=== PATIENT | female | born 1960 | race Caucasian/White ===

== ENCOUNTER 2017-07-17 07:47 | Inpatient (IN) | payer OTHER ==
[~2017-07-17] VITALS: Ht 152.4 cm; Wt 83.1 kg
[2017-07-17] MEDS ORDERED: LIDOCAINE 2%, 20ML ONE (11:06)
[2017-07-17 11:11] LABS: ALANINE AMINOTRANSFERASE 13 U/L (12-78); ALBUMIN 3.8 g/dL (3.4-5.0); ANION GAP 12 mmol/L (5-15); CALCIUM 9.3 mg/dL (8.5-10.1); CHLORIDE 101 mmol/L (98-107); CREATININE 6.82 mg/dL (0.55-1.02)
[2017-07-17 11:14] LABS: ALKALINE PHOSPHATASE 99 U/L (45-117); BASOPHILS # (AUTO) 0.04 x10^3/uL (0-0.1); BASOPHILS % (AUTO) 1 % (0-1); BILIRUBIN,TOTAL 0.6 mg/dL (0.2-1.0); EOSINOPHILS # (AUTO) 0.08 x10^3/uL (0-0.4); EOSINOPHILS % (AUTO) 1 % (1-7); LYMPHOCYTES # (AUTO) 1.54 x10^3/uL (1-3.4); LYMPHOCYTES % (AUTO) 24 % (22-44); MD NO; MEAN CORPUSCULAR HEMOGLOBIN 30.4 pg (27.0-34.8); MEAN CORPUSCULAR HGB CONC 33.9 g/dL (32.4-35.8); MEAN CORPUSCULAR VOLUME 89.5 fL (80-100); MEAN PLATELET VOLUME 8.6 fL (7.4-10.4); MONOCYTES # (AUTO) 0.31 x10^3/uL (0.2-0.8); MONOCYTES % (AUTO) 5 % (2-9); NEUTROPHILS # (AUTO) 4.39 x10^3/uL (1.8-6.8); NEUTROPHILS % (AUTO) 69 % (42-75); PLATELET COUNT 198 x10^3/uL (130-400); RED BLOOD COUNT 3.47 x10^6/uL (3.82-5.3); RED CELL DISTRIBUTION WIDTH 13.8 % (9.6-15.2); TOTAL PROTEIN 8.1 g/dL (6.4-8.2)
[2017-07-17] MEDS ORDERED: FENTANYL PF 100 MCG/2ML ONE (11:33)
[2017-07-17] MEDS ORDERED: MIDAZOLAM 1 MG/ML, 2ML ONE ×2 (11:34)
[2017-07-17] MEDS ORDERED: FLUMAZENIL 0.1 MG/1 ML, 5ML ONE (11:35)
[2017-07-17] MEDS ORDERED: NALOXONE 1 MG/ML, 2ML ONE (11:35)
[2017-07-17 14:07] VITALS: BP 113/64
== END 2017-07-17 20:18 | disposition home or self-care (01) | DRG 314 ==
LOC: ED 09:08 → EDIP 10:55 → 4WST 15:33
PROVIDERS: ADMIT Hospitalist; ATTEND Hospitalist
PROC: 02PYX3Z Removal of Infusion Device from Great Vessel, External Approach (ICD-10-PCS; principal; 2017-07-17)
PROC: 02HV33Z Insertion of Infusion Device into Superior Vena Cava, Percutaneous Approach (ICD-10-PCS; 2017-07-17)
PROC: B5181ZA Fluoroscopy of Superior Vena Cava using Low Osmolar Contrast, Guidance (ICD-10-PCS; 2017-07-17)
PROC: 5A1D70Z Performance of Urinary Filtration, Intermittent, Less than 6 Hours Per Day (ICD-10-PCS; 2017-07-17)
DX: T82.41XA Breakdown (mechanical) of vascular dialysis catheter, initial encounter (principal); N18.6 End stage renal disease; N17.9 Acute kidney failure, unspecified; E87.1 Hypo-osmolality and hyponatremia; Y84.1 Kidney dialysis as the cause of abnormal reaction of the patient, or of later complication, without mention of misadventure at the time of the procedure; D63.1 Anemia in chronic kidney disease; E66.9 Obesity, unspecified; Z68.35 Body mass index [BMI] 35.0-35.9, adult; I69.312 Visuospatial deficit and spatial neglect following cerebral infarction; Z99.2 Dependence on renal dialysis; Y92.89 Other specified places as the place of occurrence of the external cause
CPT/HCPCS: 36415; 36581; 75984; 80053; 83735; 84100; 85025; 99156; 99157; J2250; J3010; J3490; C1750; C1769; C1894; J1642; J2310

== ENCOUNTER 2017-07-20 06:35 | Day surgery (SDC) | payer OTHER ==
[~2017-07-20] VITALS: Ht 152.4 cm; Wt 83.2 kg
[2017-07-20] MEDS ORDERED: OXYTOCIN 10 UNITS/ML, 1ML ONE (06:55)
[2017-07-20] MEDS ORDERED: VASOPRESSIN 20 UNIT/ML, 1ML ONE (06:55)
[2017-07-20] MEDS ORDERED: METHYLERGONOVINE 0.2 MG/ML IM ONE (06:55)
[2017-07-20] MEDS ORDERED: LACTATED RINGERS 1,000 ML IV SCH (07:11)
[2017-07-20] MEDS ORDERED: SEVE0.8P PO (07:19)
[2017-07-20] MEDS ORDERED: ATOR40TA78 PO (07:19)
[2017-07-20] MEDS ORDERED: FLUD0.1T PO (07:19)
[2017-07-20] MEDS ORDERED: VITAMIN D PO (07:19)
[2017-07-20] MEDS ORDERED: RENAL TAB PO (07:19)
[2017-07-20 07:22] VITALS: BP 155/89
[2017-07-20] MEDS ORDERED: LIDOCAINE 1%, 2ML SQ PRN (07:30)
[2017-07-20] MEDS ORDERED: SODIUM CHLORIDE 0.9% 1,000 ML IV SCH (08:14)
[2017-07-20 08:29] LABS: ALANINE AMINOTRANSFERASE 14 U/L (12-78); ALBUMIN 3.6 g/dL (3.4-5.0); ANION GAP 8 mmol/L (5-15); CALCIUM 8.9 mg/dL (8.5-10.1); CHLORIDE 105 mmol/L (98-107); CREATININE 7.29 mg/dL (0.55-1.02)
[2017-07-20] MEDS ORDERED: OXYcodone 5 MG/5 ML ORAL.SOL UDC PO PRN (08:30)
[2017-07-20] MEDS ORDERED: ALBUTEROL SULFATE 2.5 MG/3 ML NPPB PRN (08:30)
[2017-07-20] MEDS ORDERED: PROMETHAZINE 25 MG/ML, 1ML IV PRN (08:30)
[2017-07-20] MEDS ORDERED: LORazepam 2 MG/ML, 1ML IVPush PRN (08:30)
[2017-07-20] MEDS ORDERED: FENTANYL PF 100 MCG/2ML IV PRN (08:30)
[2017-07-20] MEDS ORDERED: HYDROmorphone 1 MG/ML, 1ML IV PRN (08:30)
[2017-07-20] MEDS ORDERED: hydrALAzine 20 MG/ML, 1ML IV PRN (08:30)
[2017-07-20] MEDS ORDERED: ACETAMINOPHEN 325 MG TABLET PO PRN (08:30)
[2017-07-20] MEDS ORDERED: LABETALOL 5MG/ML, 20ML IV PRN (08:30)
[2017-07-20 08:31] LABS: ALKALINE PHOSPHATASE 92 U/L (45-117); BILIRUBIN,TOTAL 0.6 mg/dL (0.2-1.0); TOTAL PROTEIN 7.8 g/dL (6.4-8.2)
[2017-07-20] MEDS ORDERED: FENTANYL PF 100 MCG/2ML ONE (08:35)
[2017-07-20] MEDS ORDERED: MIDAZOLAM 1 MG/ML, 2ML ONE (08:35)
[2017-07-20] MEDS ORDERED: DEXAMETHASONE 4 MG/ML, 1ML ONE (09:21)
[2017-07-20] MEDS ORDERED: CEFAZOLIN 1,000 MG ONE (09:21)
[2017-07-20] MEDS ORDERED: PROPOFOL 10 MG/ML, 20ML ONE (09:21)
[2017-07-20] MEDS ORDERED: ONDANSETRON 2MG/ML, 2ML ONE (09:21)
== END 2017-07-20 10:50 ==
LOC: OUT 06:35
PROVIDERS: ATTEND Specialist
DX: N19 Unspecified kidney failure (principal); N95.0 Postmenopausal bleeding; Z99.2 Dependence on renal dialysis; Z86.73 Personal history of transient ischemic attack (TIA), and cerebral infarction without residual deficits; I10 Essential (primary) hypertension
CPT/HCPCS: 36415; 58120; 80053; 88305; J0690; J1100; J2250; J2405; J2704; J3010; J7030; J2210; J2590

== ENCOUNTER 2017-07-22 16:32 | Day surgery (SDC) | payer OTHER ==
[~2017-07-22 16:32] MED LIST: ATOR40TA78 PO; FLUD0.1T PO; LIDOCAINE 1%, 20ML ONE; RENAL TAB PO; SEVE0.8P PO; VITAMIN D PO
[2017-07-22] MEDS ORDERED: FENTANYL PF 100 MCG/2ML ONE (16:41)
[2017-07-22] MEDS ORDERED: CEFAZOLIN PMX 1GM/50ML 50 ML ONE (17:09)
[2017-07-22] MEDS ORDERED: VISIPAQUE 270 MG/ML, 50ML BOTTLE ONE (17:31)
== END 2017-07-22 19:00 ==
LOC: RAD 16:32
PROVIDERS: ATTEND Internal Medicine Cardiovascular Disease
DX: Z45.2 Encounter for adjustment and management of vascular access device (principal); N17.9 Acute kidney failure, unspecified
CPT/HCPCS: 36581; 75984; C1750; C1769; J0690; J1642; J3010; J3490; Q9966